=== PATIENT | female | born 2000 | race Caucasian/White ===

== ENCOUNTER 2018-08-21 16:26 | Emergency (ER) | payer OTHER, MEDICAID ==
[~2018-08-21] VITALS: Ht 160 cm; Wt 51.3 kg
[~2018-08-21 16:26] MED LIST: DEPO-PROVE150 MG/11 IM; GABAPENTIN 100100 MG PO; LAMICTAL100 MG; MACROBID 100 M100 M1 PO
[2018-08-21] MEDS ORDERED: CLONAZEPAM 1 MG1 M1 PO (16:37)
[2018-08-21 17:15] LABS: ABSOLUTE EOSINOPHILS 0.1 thou/uL (0.0-0.7); ABSOLUTE LYMPHOCYTES 1.6 thou/uL (0.8-5.3); ABSOLUTE MONOCYTES 0.7 thou/uL (0.0-1.2); ABSOLUTE NEUTROPHILS 5.7 thou/uL (1.6-8.1); BASOPHILS 0.5 %; EOSINOPHILS 1.5 %; HEMATOCRIT 41.7 % (37.0-47.0); HEMOGLOBIN 14.1 gm/dL (12.0-15.0); LYMPHOCYTES 19.4 %; MCH 29.8 pg (26.0-34.0); MCHC 33.9 g/dL (28.0-37.0); MCV 87.8 fL (80.0-100.0); MONOCYTES 8.5 %; MPV 7.9 fl. (7.2-11.1); NUCLEATED RBCS 0 /100WBC; PLATELET COUNT* 348 thou/uL (150-400); POLYS 70.1 %; RBC 4.74 mil/uL (4.20-5.00); RDW-CV 13.1 % (10.5-14.5); WBC 8.2 thou/uL (4.0-11.0)
[2018-08-21 17:26] LABS: ALBUMIN 3.4 g/dL (3.4-5.0); CALCIUM 9.1 mg/dL (8.5-10.1); CREATININE 0.8 mg/dL (0.6-1.3); POTASSIUM 3.6 mmol/L (3.5-5.1); TOTAL BILIRUBIN 0.9 mg/dL (<0.1-1.0)
[2018-08-21 17:39] LABS: MONOTEST (MONOSPOT)* NEGATIVE (Negative)
[2018-08-21 19:35] VITALS: BP 135/65
== END 2018-08-21 19:35 | disposition still patient (30) ==
LOC: M.ERS 16:26
PROVIDERS: Nurse Practitioner Family
DX: J36 Peritonsillar abscess (principal)

== ENCOUNTER 2019-09-19 02:51 | Emergency (ER) | payer OTHER, MEDICAID ==
[~2019-09-19] VITALS: Ht 160 cm; Wt 59.4 kg
[~2019-09-19 02:51] MED LIST changes: +CLONAZEPAM 1 MG1 M1 PO
[2019-09-19 03:49] LABS: HEMATOCRIT 39.1 % (37.0-47.0); HEMOGLOBIN 13.6 gm/dL (12.0-15.0); MCH 29.7 pg (26.0-34.0); MCHC 34.6 g/dL (28.0-37.0); MCV 85.6 fL (80.0-100.0); MPV 8.2 fl. (7.2-11.1); RBC 4.57 mil/uL (4.20-5.00); WBC 14.3 thou/uL (4.0-11.0)
[2019-09-19 04:00] LABS: CALCIUM 8.3 mg/dL (8.5-10.1); CREATININE 0.7 mg/dL (0.6-1.3); POTASSIUM 4.1 mmol/L (3.5-5.1)
[2019-09-19 04:04] LABS: TOTAL BILIRUBIN 0.3 mg/dL (<0.1-1.0); TOTAL PROTEIN 7.8 g/dL (6.4-8.2)
[2019-09-19 04:16] LABS: URINE BILIRUBIN NEGATIVE (Negative); URINE BLOOD TRACE (Negative); URINE CLARITY CLEAR; URINE COLOR YELLOW; URINE GLUCOSE-RANDOM NEGATIVE (Negative); URINE KETONES NEGATIVE (Negative); URINE LEUKOCYTES NEGATIVE (Negative); URINE NITRITE NEGATIVE (Negative); URINE PROTEIN NEGATIVE (Negative); URINE SPECIFIC GRAVITY 1.025 (1.005-1.030); URINE UROBILINOGEN 0.2 E.U./dl (0.2-1.0)
[2019-09-19 04:51] VITALS: BP 112/64
--- NOTE | 2019-09-19 13:11 | EKG ---
[place] [id number] ELECTROCARDIOGRAM REPORT Name: JIMBO CERNA Room: [facility]#: [id number] Admission: 09/19/19 Attend Phys: Discharge: 09/19/19 Date of : [birth year] Date of Service: 09/19/19 0254 Report #: [id number] THIS REPORT FOR: //name// [facility] ED Test Date: 2019-09-19 Test Time: 02:54:32 Pat Name: JIMBO CERNA Department: Room: Gender: Headwaitress: : 2000 Requested By: Kaelyn Jo Order Number: [id number] MD: Marito Robertson Measurements Intervals [place] Rate: 117 P: 75 NM: 158 QRS: 70 QRSD: 94 T: 10 QT: 330 QTc: 461 Interpretive Statements Sinus tachycardia RSR' in V1 or V2, probably normal variant Borderline T wave abnormalities Baseline wander in lead(s) V4 No previous ECG available for comparison Electronically Signed On 09-19-2019 13:09:42 CDT by Marito Robertson [email or web address] <ELECTRONICALLY SIGNED> By: Marito Robertson MD, [facility] 09/19/19 1309 0254 0254 Marito Robertson MD, [facility] /EPI
== END 2019-09-19 04:51 ==
LOC: M.ERS 02:51
PROVIDERS: Personal Emergency Response Attendant
DX: F10.129 Alcohol abuse with intoxication, unspecified (principal); Y90.6 Blood alcohol level of 120-199 mg/100 ml; R07.89 Other chest pain; Z79.899 Other long term (current) drug therapy